=== PATIENT | female | born 2000 | race Two or more races ===

== ENCOUNTER 2018-07-27 00:39 | Emergency (ER) | payer MEDICAID ==
[~2018-07-27] VITALS: Ht 165.1 cm; Wt 63.5 kg
[2018-07-27 01:07] LABS: Basophils # (auto) 0 uL; Basophils % (auto) 0.3 % (0.0-2.0); Eosinophils # (auto) 0.1 uL; Eosinophils % (auto) 1.3 % (0.0-7.0); Hematocrit 35.9 % (36.0-46.0); Hemoglobin 12.4 g/dL (12.2-16.2); Lymphocytes # (auto) 1.5 uL; Mean Corpuscular Hemoglobin 29.7 pg (28.0-32.0); Mean Corpuscular Hgb Conc. 34.7 g/dL (32.0-36.0); Mean Corpuscular Volume 85.6 fL (80.0-100.0); Monocytes # (auto) 0.6 uL; Neutrophils % (auto) 73.4 % (37.0-80.0); Platelet Count (auto) 197 10^3/uL (140-450); Red Cell Distribution Width 12.5 % (11.8-14.3); White Blood Cell 8.1 10^3/uL (4.4-10.8)
[2018-07-27 01:25] LABS: Potassium 3.3 mmol/L (3.5-5.1)
[2018-07-27 01:29] LABS: Calcium 8.8 mg/dL (8.5-10.1)
[2018-07-27 01:34] LABS: BUN/Creatinine Ratio 8.1; Bilirubin, Total 0.7 mg/dL (0.2-1.0); Total Protein 7.9 g/dL (6.4-8.2)
[2018-07-27] MEDS ORDERED: SODIUM CHLORIDE 0.9% 1,000 ML IV ONE (04:15)
[2018-07-27 05:18] LABS: Urine Amorphous Crystal FEW /hpf (None Seen); Urine Bacteria FEW /hpf (None Seen); Urine Blood 2+ /uL (Negative); Urine Mucus FEW (None Seen); Urine Specific Gravity 1.008 (1.001-1.035); Urine WBC 10 /hpf (0 - 5)
[2018-07-27 05:36] LABS: Alcohol, Urine < 3.0 mg/dL (0-5); Amphetamine Screen, Urine NEGATIVE (NEGATIVE); Barbiturate Scree,Urine NEGATIVE (NEGATIVE); Benzodiazephine Screen, Urine NEGATIVE (NEGATIVE); Cannabinoid Screen, Urine NEGATIVE (NEGATIVE); Cocaine Screen, Urine NEGATIVE (NEGATIVE); Opiate Scree,Urine NEGATIVE (NEGATIVE); Phencyclidine Screen, Urine NEGATIVE (NEGATIVE)
[2018-07-27] MEDS ORDERED: SODIUM CHLORIDE 0.9% 500 ML IV ONE (07:31)
[2018-07-27] MEDS ORDERED: KETOROLAC TROMETH 30 MG/ML 1ML VIAL IV ONE (07:45)
[2018-07-27] MEDS ORDERED: cefTRIAXone 1GM/50ML D5W 50 ML IV ONE (07:45)
[2018-07-27] MEDS ORDERED: POTASSIUM CHL 10% (20 MEQ/15ML) 15ml ORAL SOLN PO ONE (07:45)
[2018-07-27 12:12] VITALS: BP 108/70
== END 2018-07-27 13:22 | disposition home or self-care (01) ==
LOC: EDBD 00:39 → ER 00:42
DX: N39.0 Urinary tract infection, site not specified (principal); E87.6 Hypokalemia
CPT/HCPCS: 36415; 71045; 80053; 80307; 81001; 84702; 85025; 87070; 87880; 96361; 96365; 96375; 99284; J0696; J1885; J7030

== ENCOUNTER 2023-01-22 20:44 | Emergency (ER) | payer MEDICAID, OTHER ==
[~2023-01-22] VITALS: Ht 165.1 cm; Wt 81.6 kg
[2023-01-22 22:34] LABS: Basophils # (auto) 0 10 ^3/uL (0-0.2); Basophils % (auto) 0.1 % (0.0-2.0); Eosinophils # (auto) 0 10 ^3/uL (0-0.8); Eosinophils % (auto) 0.1 % (0.0-7.0); Lymphocytes # (auto) 1.1 10 ^3/uL (0.4-5.4); Lymphocytes % (auto) 14.2 % (10.0-50.0); Mean Corpuscular Hemoglobin 29.3 pg (28.0-32.0); Mean Corpuscular Hgb Conc. 34.3 g/dL (32.0-36.0); Mean Corpuscular Volume 85.4 fL (80.0-100.0); Monocytes # (auto) 0.4 10 ^3/uL (0-1.3); Monocytes % (auto) 5.3 % (0.0-12.0); Neutrophils # (auto) 6.5 10 ^3/uL (1.6-8.6); Neutrophils % (auto) 80.3 % (37.0-80.0); Nucleated Red Blood Cells % 0.1 %; Red Blood Cells 4.45 10^6/uL (4.0-5.20); Red Cell Distribution Width 12.8 % (11.8-14.3); White Blood Cell 8.1 10^3/uL (4.4-10.8)
[2023-01-22 22:49] LABS: Acetaminophen < 2.0 UG/ML (10.0-20.0)
[2023-01-22 22:50] LABS: Alanine Aminotransferase 23 U/L (7-40); Albumin 4.9 g/dL (3.2-4.8); Alkaline Phosphatase 73 U/L (46-116); Anion Gap 7 (5-15); Aspartate Aminotransferase 12 U/L (13-40); Calcium 9.5 mg/dL (8.7-10.4); Carbon Dioxide 24 mmol/L (20-30); Chloride 106 mmol/L (98-107); Glucose 110 mg/dL (74-106); Lipase 39 U/L (12-53); Potassium 3.7 mmol/L (3.5-5.1); Sodium 137 mmol/L (136-145)
[2023-01-22 22:51] LABS: Bilirubin, Total 1.2 mg/dL (0.2-1.0); Total Protein 7.8 g/dL (5.7-8.2)
[2023-01-22 22:52] LABS: Thyroid Stimulating Hormone 0.44 uIU/mL (0.358-3.74)
[2023-01-22 22:53] LABS: INR 1.14 (0.9-1.15); Partial Thromboplastin Time 27.8 SEC (24.5-34.5); Prothrombin Time 11.9 sec (9.3-11.8)
[2023-01-22 23:00] LABS: Beta HCG, Quantitative 0.1 mIU/mL (1.5-4.2); Salicylate < 3.0 mg/dL (2.8-20.0)
[2023-01-22 23:01] LABS: BUN/Creatinine Ratio 8.2 (10.0-20.0); Blood Urea Nitrogen < 5 mg/dL (9-23)
[2023-01-22 23:09] LABS: Erythrocyte Sedimentation Rate 10 mm/hr (0-20)
[2023-01-22 23:33] LABS: CRP High Sensitivity 0.12 mg/dL (<1.0)
[2023-01-23 05:25] LABS: Urine Bacteria FEW /hpf (None Seen); Urine Blood Negative /uL (Negative); Urine Clarity Clear (Clear); Urine Color Straw (Yellow); Urine Protein, UAD Negative (Negative); Urine Specific Gravity 1.005 (1.001-1.035); Urine Urobilinogen Normal (Negative); Urine WBC 4 /hpf (0 - 5)
[2023-01-23 05:38] LABS: Amphetamine Screen, Urine Neg (NEGATIVE); Barbiturate Scree,Urine Neg (NEGATIVE); Benzodiazephine Screen, Urine Neg (NEGATIVE); Cocaine Screen, Urine Neg (NEGATIVE); Opiate Scree,Urine Neg (NEGATIVE); Phencyclidine Screen, Urine Neg (NEGATIVE)
[2023-01-23 05:39] LABS: Cannabinoid Screen, Urine Neg (NEGATIVE)
[2023-01-23 07:40] VITALS: PULSE 85; RESP 15; O2SAT 96
[2023-01-23 09:31] LABS: COVID19 ANTIGEN SOFIA FIA NEGATIVE (NEGATIVE)
[2023-01-23] MEDS ORDERED: LORazepam 2MG/ML-1ML VIAL IM ONE (10:00)
[2023-01-23] MEDS ORDERED: CEPH250C PO (12:12)
[2023-01-23] MEDS ORDERED: cefTRIAXone SOD 1,000 MG VL IM ONE (12:15)
[2023-01-23 13:39] VITALS: BP 112/62; PULSE 76; RESP 14; TEMP 98.1; O2SAT 98
== END 2023-01-23 13:41 | disposition home or self-care (01) ==
LOC: EDUNIT# 20:44 → ER 20:44 → EDBD 20:44 → ER 01-23 13:41
DX: F20.2 Catatonic schizophrenia (principal); R10.2 Pelvic and perineal pain; F31.9 Bipolar disorder, unspecified; Z79.899 Other long term (current) drug therapy
CPT/HCPCS: 36415; 70450; 71045; 80053; 80178; 80307; 80320; 80329; 81001; 81025; 82010; 82140; 83605; 83690; 83735; 83880; 83930; 84443; 84484; 84702; 85025; 85610; 85652; 85730; 86141; 87426; 96372; 99285; J0696

== ENCOUNTER 2023-02-28 18:41 | Emergency (ER) | payer OTHER ==
[~2023-02-28] VITALS: Ht 170.2 cm; Wt 61.3 kg
[~2023-02-28 18:41] MED LIST: CEPH250C PO
[2023-02-28 19:31] LABS: Basophils # (auto) 0 10 ^3/uL (0-0.2); Basophils % (auto) 0.3 % (0.0-2.0); Eosinophils # (auto) 0 10 ^3/uL (0-0.8); Eosinophils % (auto) 0.1 % (0.0-7.0); Hematocrit 39.1 % (36.0-46.0); Hemoglobin 13.3 g/dL (12.2-16.2); Lymphocytes # (auto) 1.5 10 ^3/uL (0.4-5.4); Lymphocytes % (auto) 17.4 % (10.0-50.0); Mean Corpuscular Hemoglobin 28.9 pg (28.0-32.0); Mean Corpuscular Hgb Conc. 34.1 g/dL (32.0-36.0); Mean Corpuscular Volume 84.6 fL (80.0-100.0); Monocytes # (auto) 0.5 10 ^3/uL (0-1.3); Monocytes % (auto) 5.1 % (0.0-12.0); Neutrophils # (auto) 6.9 10 ^3/uL (1.6-8.6); Neutrophils % (auto) 77.1 % (37.0-80.0); Nucleated Red Blood Cells % 0.1 %; Red Blood Cells 4.62 10^6/uL (4.0-5.20); Red Cell Distribution Width 12.6 % (11.8-14.3); White Blood Cell 8.9 10^3/uL (4.4-10.8)
[2023-02-28 19:46] LABS: Acetaminophen < 2.0 UG/ML (10.0-20.0); Alanine Aminotransferase 20 U/L (7-40); Alkaline Phosphatase 67 U/L (46-116); Anion Gap 10 (5-15); Aspartate Aminotransferase 15 U/L (13-40); Blood Alcohol 3.4 mg/dL (<10); Calcium 9.3 mg/dL (8.7-10.4); Carbon Dioxide 21 mmol/L (20-30); Chloride 107 mmol/L (98-107); Glucose 102 mg/dL (74-106); Potassium 3.3 mmol/L (3.5-5.1); Sodium 138 mmol/L (136-145)
[2023-02-28 19:47] LABS: Bilirubin, Total 1.4 mg/dL (0.2-1.0); Total Protein 7.8 g/dL (5.7-8.2)
[2023-02-28 19:50] LABS: BUN/Creatinine Ratio 8.5 (10.0-20.0); Blood Urea Nitrogen < 5 mg/dL (9-23); Salicylate < 3.0 mg/dL (2.8-20.0)
[2023-02-28 22:08] LABS: Urine Bacteria FEW /hpf (None Seen); Urine Blood 3+ /uL (Negative); Urine Clarity Clear (Clear); Urine Color Yellow (Yellow); Urine Protein, UAD TRACE (Negative); Urine Specific Gravity 1.006 (1.001-1.035); Urine Urobilinogen Normal (Negative); Urine WBC 20 /hpf (0 - 5)
[2023-02-28 22:17] LABS: Amphetamine Screen, Urine Neg (NEGATIVE); Barbiturate Scree,Urine Neg (NEGATIVE); Benzodiazephine Screen, Urine Neg (NEGATIVE)
[2023-02-28 22:18] LABS: Cannabinoid Screen, Urine Neg (NEGATIVE); Cocaine Screen, Urine Neg (NEGATIVE); Opiate Scree,Urine Neg (NEGATIVE); Phencyclidine Screen, Urine Neg (NEGATIVE)
[2023-02-28] MEDS ORDERED: NITROFURANTOIN 100 mg CAP PO ONE (22:45)
[2023-02-28 23:52] VITALS: BP 109/74; TEMP 97.9
[2023-03-01] MEDS ORDERED: LEVO750T8 PO (00:08)
[2023-03-01 00:10] VITALS: PULSE 68; RESP 17; O2SAT 99
[2023-03-01] MEDS ORDERED: levoFLOXacin 500 MG TAB PO ONE (00:15)
== END 2023-03-01 00:28 | disposition home or self-care (01) ==
LOC: EDBD 18:41 → EDUNIT# 18:41 → ER 18:43
DX: F23 Brief psychotic disorder (principal); R10.2 Pelvic and perineal pain; N39.0 Urinary tract infection, site not specified; F31.9 Bipolar disorder, unspecified
CPT/HCPCS: 36415; 80053; 80307; 80320; 80329; 81001; 84702; 85025

== ENCOUNTER 2023-12-01 22:25 | Emergency (ER) | payer MEDICAID ==
[~2023-12-01] VITALS: Ht 170.2 cm; Wt 77.9 kg
[~2023-12-01 22:25] MED LIST changes: +LEVO750T8 PO
[2023-12-01 22:41] VITALS: BP 101/66; PULSE 98; RESP 18; TEMP 98.8; O2SAT 98
[2023-12-02 00:22] LABS: COVID19 ANTIGEN SOFIA FIA NEGATIVE (NEGATIVE)
== END 2023-12-02 00:38 | disposition home or self-care (01) ==
LOC: ER 22:25
DX: J06.9 Acute upper respiratory infection, unspecified (principal); F20.9 Schizophrenia, unspecified; Z20.822 Contact with and (suspected) exposure to COVID-19
CPT/HCPCS: 36415; 87426